=== PATIENT | female | born 2000 | race Caucasian/White ===

== ENCOUNTER 2021-08-22 14:02 | Outpatient (RCR) | payer MEDICAID, SELFPAY ==
--- OUTSIDE RECORDS SUMMARY | 2021-08-10 09:16 | XMS_ITS | Continuity of Care Document ---
:2000 Author Care Team Providers Name Role Phone MD Davey Holley Primary Care Physician KENJI Cramer Attending Physician Chief Complaint and Reason for Visit Chief Complaint Allergic Reaction Reason for Visit [id number] Allergies, Adverse Reactions, Alerts Allergen Type Severity Reaction Last Updated Verified Status Lentil Allergy Unknown Anaphylactic May 08, Yes Activ e Shock 2020 Shellfish Allergy Unknown Anaphylactic May 08, Yes Activ e Allergy Shock 2020 Peanut-contai Allergy Unknown Anaphylactic May 08, Yes A ctive sara Drug Shock 2020 Products Coconut Allergy Severe Anaphylactic October No Active Shock 2017 Clark Beans Allergy Severe Anaphylactic October No Active Shock 2017 Peas Allergy Unknown Anaphylactic October No Active Shock 2017 Tree Nut Allergy Severe Anaphylactic October No Active Shock 2017 Social History Smoking Status Status Start Date End Date Date of Observat ion Never smoked tobacco May 08, 2020 11:00am (finding) Additional Data Assigned Sex Female Problems Active Problems Medical Problem Onset Date Status Asthma 2002 Active Eosinophilic esophagitis 2005 Active GERD (gastroesophageal reflux 2005 Active disease) Severe food allergies Active Wasp allergy 2014 Active Acne Active Allergic rhinitis Active History of tonsillectomy 2006 Resolved Medications Medication Status Dose Units Route Directions Qty Days Start End Ins tructions Date Date Albuterol Active 2 PUFF INH 1 Sulfate (Proair Hfa) 90 Mcg/Puff INH Biotin Active 800 MCG PO Daily Ethinyl Active 1 TAB PO Daily 84 Estradiol/Nor gestimate (Sprintec 28) 0.25 Mg/0.035 Mg TAB Fluticasone Active 2 PUFF PO Twice A Day 1 Propionate Hfa (Flovent Hfa) 220 Mcg/Act AER Magnesium Active 200 MG PO Daily Multiple Active 1 TAB PO Daily Vitamin (Multivitamin ) 1 Tab TAB Naltrexone Active 4.5 MG PO Daily Probiotic Active 1 CAP PO Daily Product (Probiotic) CAP Spironolacton Active 100 MG PO Daily 30 e Zinc Sulfate Active 220 MG PO Daily 100 (Zinc Sulfate (50 Mg Elemental)) 220 Mg CAP Albuterol Disconti 2.5 MG NEB Every 4 30 Decembapril Sulfate nued Hours as r , (Albuterol needed 2017 2020 Neb) 11:12pm 10:54a 2.5MG/3ML NEB m Azelaic Acid Disconti 2 GIULIA EXT Daily 16 May (Azelex) 20 % nued 2020 10:54a m Control Disconti Unknapril nued n Dose 2020 10:54a m Covid-19 Disconti 30 MCG IM Once May (Sars-Cov-2) nued , , Mrna Vir 2021 2021 (Pfizer-Biont 9:39am 9:41am ech Covid-19) 30 Mcg/0.3 Ml INJ Covid-19 Disconti 30 MCG IM Once November (Sars-Cov-2) nued , r , Mrna Vir 2020 2020 (Pfizer-Biont 2:08pm 2:10pm ech Covid-19) 30 Mcg/0.3 Ml INJ Minocycline Disconti 50 MG PO Twice A Day April Hcl nued 2020 10:54a m Prednisone Disconti 40 MG PO Daily 10 Decemb nued r , er 2017 08, 11:12pm 2018 1:36pm Spironolacton Disconti 25 MG PO Four Times 60 Evangelist h e nued Daily 2020 10:54a m Immunizations Immunization Event Date Not Given Dose Television Installer Helper Lot Vac cine Reason Number Number Informatio n Statement (VIS) Deta il COVID-19 Pfizer May 13, PFIZER-BIONTECH [id number] 2020 COVID-19 Pfizer June 03, 2 PFIZER-BIONTECH [id number] 2020 COVID-19 Pfizer November 19 PFIZER-BIO [id number] 2020 COVID-19 Pfizer June 12, PFIZER-BIO [id number] 2021 Advance Directives Advance Directive Response Recorded Date/Time Has patient completed a No May 08, 2020 10:42am Health Care Directive? Insurance Providers Guarantor Liliane Gonzalez N Address [address] [place] [address] Contact Info. Home Phone: Payer Policy Id Coverage Id Subscriber's Subscriber Effective Expi ration Name Id Date Date Out Of [id number] Liliane Gonzalez [id number] January y , [facility] N 2019 Medicaid Encounters Encounter Location(s) Arrival/Admit Date Discharge/Depart Date Provider(s) Registered [place] July 20, 2021 Mikayla Cramer [facility] 7:10am A DENTAL AIDE Plan of Treatment Future Tests Future scheduled test information is unavailable Pending Tests Pending diagnostic test information is unavailable Future Visits Future appointment information is unavailable Referrals to Other Providers Reason for Referral Start Provider Provider Contact Provider Address Referral Date Information Gillian Holley Work Phone: [facility] E MD [address] [facility] [address] [phone] SEEN, ELSEWHERE Future Procedures Future procedure information is unavailable Future Medications Future medication information is unavailable Patient Instructions See Additional Instructions Anaphylaxis (ED)
[2021-08-22 14:07] VITALS: BP 102/64; PULSE 66; RESP 16; TEMP 36.3; O2SAT 100
[2021-08-22] MEDS: OMALIZUMAB 150 MG/ML SYRINGE 300 MG SUBCUT (14:17)
--- NOTE | 2021-09-14 10:52 | AT.DPN ---
Authorization: User: Ashley Vu Nora Date: 04/25/21 08:36 Type: Eligibility Determination Note... Request received from [facility] for continued authorization of Xolair [id number]. Patient carries [employer] as primary insurance. Per Scott at [employer] no prior authorization is required for Xolair. Call Ref #[id number]
== END 2021-09-16 23:59 | disposition home or self-care (01) ==
LOC: CCIC 14:02
PROVIDERS: PCP Internal Medicine; Visit Provider Internal Medicine Hematology & Oncology
DX: J45.909 Unspecified asthma, uncomplicated (principal)
CPT/HCPCS: 96372; 96374; 99212; J2357

== ENCOUNTER 2022-02-21 08:00 | Outpatient (RCR) | payer MEDICAID, BC, SELFPAY ==
[2021-09-21 10:18] VITALS: BP 103/61; PULSE 100; RESP 16; TEMP 37.1; O2SAT 100
[2021-09-21] MEDS: OMALIZUMAB 150 MG PT OWN 300 MG SUBCUT (10:30)
[2021-10-29 12:34] VITALS: BP 104/73; PULSE 77; RESP 16; TEMP 36.3; O2SAT 98
[2021-10-29] MEDS: OMALIZUMAB 150 MG/ML SYRINGE 300 MG SUBCUT (12:38)
[2021-11-27 11:00] VITALS: BP 119/74; PULSE 83; RESP 16; TEMP 36.8; O2SAT 100
[2021-11-27] MEDS: OMALIZUMAB 150 MG/ML SYRINGE 300 MG SUBCUT (11:47)
--- NOTE | 2022-02-01 08:52 | ONC.NURNOTE ---
Addendum entered by Karolina Jaramillo RN 02/07/22 12:26: Authorization: Received message from [facility] that: Magali has been approved for her Xolair injections from 01/04/22-01/03/23!? Just got the fax from [facility] Addendum entered by Karolina Jaramillo RN 02/05/22 08:51: Called and left message with clinic to determine if Dr. Holley is willing to write new orders with these diagnosis codes. She is out of the office this week, but clinic will reach out to covering provider. Original Note: Patient's long standing orders for xolair have been denied by insurance. [facility] and primary care clinic have been working on getting a peer to peer for authorization since 01/04/2022. UR thought using diagnosis that was used on last order might help with the issue. Dr. Holley's office notified to try a new order with dx of Z91.018 or J45.909. LM with [facility] to try this.
--- NOTE | 2022-02-13 11:32 | URNOTE ---
Per correspondence from [facility] of [place], Xolair has been [id number]/18/2022-01/03/2023. Apeal ID #[id number]
[2022-02-21 14:36] VITALS: BP 111/70; PULSE 76; RESP 16; TEMP 35.9; O2SAT 99
[2022-02-21] MEDS: OMALIZUMAB 150 MG/ML SYRINGE 300 MG SUBCUT (15:05)
== END 2022-03-20 23:59 | disposition home or self-care (01) ==
LOC: CCIC 08:00
PROVIDERS: PCP Internal Medicine; Referring Provider Internal Medicine; Visit Provider Internal Medicine Hematology & Oncology
DX: J45.909 Unspecified asthma, uncomplicated (principal)
CPT/HCPCS: 96372; J2357

== ENCOUNTER 2022-09-20 10:00 | Outpatient (RCR) | payer BC, SELFPAY ==
--- NOTE | 2022-03-21 08:49 | ONC.NURNOTE ---
Pt rescheduled xolair appt due to feeling sick.
[2022-03-29 14:05] VITALS: BP 100/66; PULSE 73; RESP 16; TEMP 36.4; O2SAT 100
[2022-03-29] MEDS: OMALIZUMAB 150 MG/ML SYRINGE 300 MG SUBCUT (14:30)
[2022-04-30 14:30] VITALS: BP 110/69; PULSE 75; RESP 16; TEMP 36.1; O2SAT 100
[2022-04-30] MEDS: OMALIZUMAB 150 MG/ML SYRINGE 300 MG SUBCUT (14:30)
[2022-05-31 13:10] VITALS: BP 96/60; PULSE 62; RESP 16; TEMP 36.8; O2SAT 100
[2022-05-31] MEDS: OMALIZUMAB 150 MG/ML SYRINGE 300 MG SUBCUT (13:18)
[2022-06-28 10:10] VITALS: BP 101/62; PULSE 68; RESP 16; TEMP 37.3; O2SAT 94
[2022-06-28] MEDS: OMALIZUMAB 150 MG/ML SYRINGE 300 MG SUBCUT (10:10)
--- NOTE | 2022-07-26 11:36 | PC.NURSE ---
Pt called today to cancel her Xolair appointment today due to new insurance (new job) and needing prior auth first. Pt is now employed by [employer] and has [employer] BC/BS insurance. ID: [id number] Group: [id number] Will start new PA process through UR [facility]
--- NOTE | 2022-08-09 13:51 | URNOTE ---
Received request for [employer] ([id number]). This has been approved 07/29/2022-02/16/2023.REf #[id number]
[2022-08-19 08:10] VITALS: BP 96/64; PULSE 74; RESP 16; TEMP 36.8; O2SAT 100
[2022-08-19] MEDS: OMALIZUMAB 150 MG/ML SYRINGE 300 MG SUBCUT (08:15)
[2022-09-20 10:04] VITALS: BP 107/65; PULSE 79; RESP 18; TEMP 36.6; O2SAT 99
[2022-09-20] MEDS: OMALIZUMAB 150 MG/ML SYRINGE 300 MG SUBCUT (10:06)
== END 2022-09-25 23:59 | disposition home or self-care (01) ==
LOC: CCIC 10:00
PROVIDERS: PCP Internal Medicine; Referring Provider Internal Medicine; Visit Provider Internal Medicine Hematology & Oncology
DX: J45.909 Unspecified asthma, uncomplicated (principal)
CPT/HCPCS: 96372; J2357

== ENCOUNTER 2023-06-03 10:39 | Outpatient (CLI) | payer BC, SELFPAY ==
--- OUTSIDE RECORDS SUMMARY | 2023-06-03 08:37 | XMS_ITS | Clinical Summary ---
Author Name Unknown Organization [facility] Address [address] [place] [address] Care Team Providers Care Revenue Field Agent Name Role Phone Unavailable Primary Care Provider Unavailabl e Source Comments Patient records contain information from all sites at [facility]. For routine questions regarding patient records, call [phone] during business hours, M-F 8:00 AM - 5:00 PM Central Time. Record requests for emergency care only can be directed to [phone] at any time.[facility] Allergies Active Allergy Reactions Criticality Noted Date Comments Zapata Anaphylaxis High 12/28/2018 Clark Beans Clark Beans Coconut Anaphylaxis High 12/28/2018 Pantoprazole Rash 11/11/2017 Triggers severe cystic acne as did omeprazole Triggers severe cystic acne Peanut Anaphylaxis High 04/06/2014 Peanuts and tree nuts (Abstracted records from [facility] Everywhere) peanuts peanuts Peanuts and tree nuts (Abstracted records from [facility] Everywhere) peanuts peanuts Shellfish Containing Products Anaphylaxis High 12/24/2018 (Abstracted records from [facility] Everywhere) (Abstracted records from [facility] Everywhere) (Abstracted records from [facility] Everywhere) Wasp Venom Anaphylaxis High 10/01/2017 (Abstracted records from [facility] Everywhere) (Abstracted records from [facility] Everywhere) Medications Medication Sig Dispensed Refills Start Date End Date Status Estarylla 0.25-35 mg-mcg per tablet Take 1 tablet by mouth daily. 03/27/2022 Active BIOTIN ORAL Take by mouth daily. Act dyan MULTIVITAMIN ORAL Take by mouth daily. Active Lactobacillus acidophilus (PROBIOTIC ORAL) Take by mouth daily. Active albuterol 2.5 mg /3 mL nebulizer solution Inhale 2.5 mg as needed. 04/28/2020 Active albuterol 90 mcg/actuation inhaler Inhale 2 puffs as needed. 12/06/2014 Active azelaic acid (Azelex) 20 % cream Apply 1 application topically as needed. 11/27/2018 Active cetirizine (ZyrTEC) 10 mg tablet Take 10 mg by mouth as needed. 03/21/2021 Active cholecalciferol, vitamin D3, (Vitamin D3) 10 mcg (400 unit) capsule Take by mouth daily. Acti ve docosahexaenoic acid-epa 120-180 mg capsule Take 5 mL by mouth daily. Active EPINEPHrine 0.3 mg/0.3 mL injection syringe Inject 0.3 mg intramuscularly as needed. 09/08/2015 Active famotidine (PEPCID) 20 mg tablet Take 20 mg by mouth as needed. 05/03/2022 Active fluticasone propionate (FLOVENT HFA) 220 mcg/actuation inhaler as needed. 10/16/2017 Active glutamine 500 mg capsule Take by mouth daily. Acti ve ipratropium-albute roL (DUONEB) 0.5-2.5 mg/3 mL nebulizer solution Inhale 3 mL as needed. 12/16/2013 Active magnesium sulfate 100 mg capsule Take by mouth daily. Active omalizumab (XOLAIR) 150 mg/mL injection Inject 300 mg under the skin every 30 (thirty) days. 02/19/2021 Active VITAMIN B COMPLEX ORAL Take by mouth daily. Acti ve zinc sulfate (ZINCATE) 220 (50 mg zinc) capsule daily. 08/22/2021 Active Social History Tobacco Use Types Packs/Day Years Used Date Smoking Tobacco: Never Smokeless Tobacco: Never Tobacco Cessation:Counseling Given: Not Answered Nutrition Answer Date Recorded Nutrition: EVOO Fat Source Unknown 05/10 Nutrition: Servings of Fruits/Vegetables per Day Not on file 05/10/2022 Dental Answer Date Recorded Dental: Regular Dentist Unknown 05/11/19 23 Sex and Gender Information Value Date Recorded Sex Assigned at Not on file Gender Identity Not on file Sexual Orientation Not on file Last Filed Vital Signs Vital Sign Reading Time Taken Comments Blood Pressure - - Pulse - - Temperature - - Respiratory Rate - - Oxygen Saturation - - Inhaled Oxygen Concentration - - Weight 55.8 kg (123 lb) 06/03/2022 11:28 AM CDT Height 160 cm (5' 3) 06/03/2022 11:28 AM CDT Body Mass Index 21.79 06/03/2022 11:28 AM CDT Plan of Treatment Health Maintenance Due Date Last Done Comments Cervical Cancer Screening 1999 Chlamydia and Gonorrhea Screening 1999 HIV Screening 1999 Hepatitis C Screening 1999 Pneumococcal vaccine (0-64 y ears) (1 of 2 - PPSV23 or PCV20) 07/07/2000 05/12/2000, 01/14/2000 DTaP,Tdap,and Td Vaccines (7 - Td or Tdap) 02/27/2022 02/28/2012, 12/10/2004, 12/10/2004, Additional history exists COVID-19 Vaccine (6 - 2022-2 4 season) 2022 10/27/2021, 06/12/2021, 11/17/2020, Additional history exists Influenza Vaccine (#1) 2022 9, 12/23/2008, 10/25/2008, Additional history exists Depression Screening (Annual PHQ-2) 02/17/2023 Hepatitis B Vaccines Completed 05/12/2000, 1999, 1999 HPV Vaccines Completed 09/20/2022, 0503/2022, 03/29/[address] [place] [id number]
--- OUTSIDE RECORDS SUMMARY | 2023-06-03 08:37 | XMS_ITS | Clinical Summary ---
Author Name Unknown Organization [facility] Address [place], [place] [address] Care Team Providers Care Delivery Manager Name Role Phone Gillian Holley MD Primary Care Provider [phone] Allergies Active Allergy Reactions Criticality Noted Date Comments Zapata Anaphylaxis High 12/28/2018 Clark Beans Coconut Anaphylaxis High 12/28/2018 Legumes Anaphylaxis High 12/28/2018 pea Lentils Anaphylaxis High 12/28/2018 Peanut Anaphylaxis High 04/06/2014 Peanuts and tree nuts (Abstracted records [facility] Everywhere) peanuts peanuts Shellfish Containing Products Anaphylaxis High 12/24/2018 (Abstracted records from [facility] Everywhere) Tree Nuts Anaphylaxis High 10/01/2011 Venom-Wasp Anaphylaxis High 10/01/2017 (Abstracted records from [facility] Everywhere) Medications Medication Sig Dispensed Refills Start Date End Date Status omega 0-fpi-rlv-fish oil (FISH OIL) 100-160-1,000 mg cap Take 5 mL by mouth. Active albuterol HFA 90 mcg/actuation inhaler Inhale 2 Puffs by mouth every 4 hours. 09/18/2017 Active PROAIR HFA 90 mcg/actuation inhaler INHALE 2 PUFFS BY MOUTH EVERY 4 HOURS NEEDED (SHORTNESS OF BREATH, WHEEZING) 5 11/27/2018 Active AZELEX 20 % cream APPLY TO AFFECTED AREA TWICE A DAY 4 11/27/2018 Active cetirizine (ZYRTEC) 1 mg/mL solution TAKE 10 ML BY MOUTH ONCE DAILY NEEDED (ALLERGIES) 11 11/27/2018 Active EPINEPHrine (EPIPEN) 0.3 mg/0.3 mL injection INJECT 0.3 ML INTO MUSCLE ONCE NEEDED FOR ANAPHYLAXIS 1 10/06/2018 Active fluticasone propionate (FLOVENT HFA) 220 mcg/Actuation inhaler SPRAY AND SWALLOW 2 PUFFS TWICE DAILY. DO NOT EAT OR DRINK FOR 1 HOUR AFTER DOSES. 10/16/2017 Active albuterol-ipratropiu m (DUONEB) (2.5-0.5 mg) in 3 mL NEBULIZATION solution Inhale 3 mL by mouth. 12/16/2013 Active levonorgestrel-ethin yl estrad, 0.1mg-20mcg, (ALESSE-28) 0.1-20 mg-mcg tablet Take 1 Tab by mouth. 03/26/2017 A ctive magnesium sulfate 100 mg cap Take by mouth. Active omalizumab (XOLAIR) 150 mg injection Inject 300 mg subcutaneous every 4 weeks. 10/13/2017 Active predniSONE (DELTASONE) 20 mg tablet Take 40 mg by mouth once daily. 0 01/21/2018 Active EPINEPHrine (Auvi-Q) 0.3 mg/0.3 mL auto-injectorIndicat ions:Allergic urticaria Inject 0.3 mg intramuscular one time if needed for Allergic Reaction for up to 1 dose. 2 Each 2 03/04/2022 Active BIOTIN SUSPENSION 2.5MG/ML (AHC AMB MIX SF) Take by mouth. Active elderberry fruit 350 mg cap Take by mouth. Active L. ACIDOPHILUS/BIFID. ANIMALIS ORAL 1 Capsule. 01/03/2022 Active MULTIVITAMIN 12 IV 1 Tablet. 08/22/2021 Active cholecalciferol, vitamin D3, (Cholecalciferol, VitD3,, Bulk,) 100,000 unit/gram powd Mix in liquid then take by mouth. Active vitamin B complex (B-COMPLEX VITAMIN) tablet Take by mouth. 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 Family hx: acne. 07/27/15 phone acne flaring x 3mo, add trial doxy 100bid; 05/30/14 phonecall,samples Aczone 5%gel to trial MUCH better, improved dramatically; 05/18/2014 Dermatology eval, new onset Inflamm acne vulgaris, face/upperback/chest, Acne scarring, Postinflammatory Hyperpigmentation, in Atopic pt (per hx,fam hx), hx migraines, RXd trial BP 5%gel, clindamycin 1%gel, Differin/adapalene 0.1%cream. Family hx: acne. 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 28 kU RAST 10/20: Class 3 (17.0 kU) RAST 09/25: Class 4 (38.0 kU) RAST 16. 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 Eosinophilic esophagitis 12/16/2005 Family History Medical History Relation Name Comments Crohn's disease Maternal Grandfather Lung cancer Maternal Grandmother Relation Name Status Comments Maternal Grandfather Maternal Grandmother Social History Tobacco Use Types Packs/Day Years Used Date Smoking Tobacco: Never Smokeless Tobacco: Never Tobacco Cessation:Counseling Given: Yes Alcohol Use Standard Drinks/Week Comments Not Currently 0 (1 standard drink = 0.6 oz pur e alcohol) PHQ-2 Answer Date Recorded PHQ-2 Score 0 12/28/2018 Social Connections Answer Date Recorded Frequency of Communication with Friends and Fami ly Not on file 03/04/2022 Sex and Gender Information Value Date Recorded Sex Assigned at Not on file Gender Identity Not on file Sexual Orientation Not on file Obstetrics History Para Term AB IAB SAB Ectopic Multiple Livin g Live Births 0 0 0 0 0 0 0 0 0 0 0 Last Filed Vital Signs Vital Sign Reading Time Taken Comments Blood Pressure 104/60 05/03/2022 2:44 PM CDT Pulse 63 05/03/2022 2:44 PM CDT Temperature 36.8 ??C (98.3 ??F) 03/04/2022 9:14 AM CS T Respiratory Rate - - Oxygen Saturation 100% 05/03/2022 2:44 PM CDT Inhaled Oxygen Concentration - - Weight 54.9 kg (121 lb) 05/03/2022 2:44 PM CDT Height 160 cm (5' 3) 03/04/2022 9:14 AM BUDGET AND POLICY ANALYST Body Mass Index 21.43 03/04/2022 9:14 AM BUDGET AND POLICY ANALYST Plan of Treatment Health Maintenance Due Date Last Done Comments Tdap 2010 HIV for age 15-65 2014 HPV series for age 9-26 (1 - 3-dose series) 2014 Chlamydia for age 16-24 2015 Hepatitis C screening for age 18-79 2017 Tetanus booster 2019 Depression screening for age 12+ 12/29/2019 12/28/2018 Pap test for age 21-65 01/17/2020 COVID-19 vaccine series ( season) 2022 10/27/2021, 06/12/2021, 11/17/2020, Additional history exists BMI (ht and wt on same day) for age 18+ 03/04/2023 03/04/2022, 12/28/2018 Influenza for age 9-49 10/19/2023 Pneumococcal series for age 6-64 Aged Out No longer eligible based on patient's age to complete this topic Care Teams Delivery Manager Relationship Specialty Start Date End Date Gillian Holley MD [address] [place] [address] PCP - General Internal Medicine 12/29/18
--- OUTSIDE RECORDS SUMMARY | 2023-06-03 08:37 | XMS_ITS ---
Author Name Unknown Organization [facility] Address [address] [place] [address] Care Team Providers Care Corrosion Technician Name Role Phone Unavailable Unavailable Unavailable Surgery Details Not on file Complications Check Surgery Details section. Procedure Estimated Blood Loss Check Surgery Details section. Procedure Findings Check Surgery Details section. Procedure Specimens Taken Check Surgery Details section.
--- OUTSIDE RECORDS SUMMARY | 2023-06-03 08:37 | XMS_ITS | Clinical Summary ---
Author Name Unknown Organization [place] Address [facility] [place] [address] Care Team Providers Care Group Manager Name Role Phone No Ref-Primary, Physician Primary Care Provider Allergies Active Allergy Reactions Criticality Noted Date Comments Shellfish Allergy Anaphylaxis High 12/24/2018 (Abstracted records from [facility] Everywhere) (Abstracted records from [facility]where) (Abstracted records from [facility] Everywhere) Medications Medication Sig Dispensed Refills Start Date End Date Status omalizumab (XOLAIR) 150 MG/ML SOSY injection Inject 300 mg Subcutaneous every 28 days 02/19/2021 Active IHSAN 0.25-35 MG-MCG tablet Take 1 tablet by mouth daily Active Social History Tobacco Use Types Packs/Day Years Used Date Smoking Tobacco: Never Smokeless Tobacco: Never Adolescent Education Answer Date Record ed Getting School Help Needed Not on file 11/09 Sex and Gender Information Value Date Recorded Sex Assigned at Not on file Gender Identity Not on file Sexual Orientation Not on file Last Filed Vital Signs Vital Sign Reading Time Taken Comments Blood Pressure 114/82 01/24/2023 12:31 PM DRYING ROOM SUPERVISOR Pulse 86 01/24/2023 12:31 PM DRYING ROOM SUPERVISOR Temperature 37 ??C (98.6 ??F) 01/24/2023 12:31 PM DRYING ROOM SUPERVISOR Respiratory Rate - - Oxygen Saturation 97% 01/24/2023 12:31 PM DRYING ROOM SUPERVISOR Inhaled Oxygen Concentration - - Weight 54 kg (119 lb) 01/24/2023 12:31 PM DRYING ROOM SUPERVISOR Height - - Body Mass Index - - Plan of Treatment Health Maintenance Due Date Last Done Comments ADVANCE CARE PLANNING 1999 ANNUAL REVIEW OF HM ORDERS 1999 CHLAMYDIA SCREENING 1999 HIV SCREENING 2014 HEPATITIS C SCREENING 2017 PAP 01/17/2020 DTAP/TDAP/TD IMMUNIZATION (7 - Td or Tdap) 02/27/2022 02/28/2012, 12/10/2004, 03/15/2002, Additional history exists YEARLY PREVENTIVE VISIT 03/21/2022 03/21/2021 COVID-19 Vaccine ( season) 2022 10/27/2021, 06/12/2021, 11/17/2020, Additional history exists INFLUENZA VACCINE (#1) 2022 9, 12/23/2008, 10/25/2008, Additional history exists PHQ-2 (once per calendar year) 2023 HEPATITIS B IMMUNIZATION Completed 001, 1999, 1999 Pneumococcal Vaccine: Pediatrics (0 to 5 Years) and At-Risk Patients (6 to 64 Years) Completed 05/12/2000, 01/14/2000 IPV IMMUNIZATION Completed 12/10/2004, , 05/12/2000, Additional history exists MENINGITIS IMMUNIZATION Aged Out 11/16/2013, 11/16 No longer eligible based on patient's age to complete this topic HPV IMMUNIZATION Completed 09/20/2022, 03/2022, 03/29/2022 RSV MONOCLONAL ANTIBODY Aged Out No l onger eligible based on patient's age to complete this topic Care Teams Group Manager Relationship Specialty Start Date End Date No Ref-Primary, Physician PCP - General 01/24/23
--- OUTSIDE RECORDS SUMMARY | 2023-06-03 08:37 | XMS_ITS | Referral Summary ---
Author Name Unknown Organization [place] Address [facility] [place] [address] Care Team Providers Care Channel Development Director Name Role Phone No Ref-Primary, Physician Primary Care Provider Allergies Active Allergy Reactions Criticality Noted Date Comments Shellfish Allergy Anaphylaxis High 12/24/2018 (Abstracted records from [facility] Everywhere) (Abstracted records from [facility] Everywhere) (Abstracted records from [facility] Everywhere) Medications Medication Sig Dispensed Refills [...] Comments Blood Pressure 114/82 01/24/2023 12:31 PM RESIDENTIAL INTERIOR DESIGNER Pulse 86 01/24/2023 12:31 PM RESIDENTIAL INTERIOR DESIGNER Temperature 37 ??C (98.6 ??F) 01/24/2023 12:31 PM RESIDENTIAL INTERIOR DESIGNER Respiratory Rate - - Oxygen Saturation 97% 01/24/2023 12:31 PM RESIDENTIAL INTERIOR DESIGNER Inhaled Oxygen Concentration - - Weight 54 kg (119 lb) 01/24/2023 12:31 PM RESIDENTIAL INTERIOR DESIGNER Height - - Body Mass Index - - Plan of Treatment Not on file Care Teams Channel Development Director Relationship Specialty Start Date End Date No Ref-Primary, Physician PCP - General 01/24/23
--- OUTSIDE RECORDS SUMMARY | 2023-06-03 08:37 | XMS_ITS | Referral Summary ---
Author Name Unknown Organization [facility] Address [address] [place] [address] Care Team Providers Care Primer Inserting Machine Adjuster Name Role Phone Unavailable Primary Care Provider Unavailabl e Source Comments Patient records contain information from all sites at [facility]. For routine questions regarding patient records, call [phone] during business hours, M-F 8:00 AM - 5:00 PM Central Time. Record requests for emergency care only can be directed to [phone] at any time.[facility] Allergies Active Allergy Reactions Criticality Noted Date Comments [place] Anaphylaxis High 12/28/2018 Clark Beans Clark Beans [place]ut Anaphylaxis High 12/28/2018 Pantoprazole Rash 11/11/2017 Triggers severe cystic acne as did omeprazole Triggers severe cystic acne Peanut Anaphylaxis High 04/06/2014 Peanuts and tree nuts (Abstracted records from [facility] Care Everywhere) peanuts peanuts Peanuts and tree nuts (Abstracted records from [facility] Care Everywhere) peanuts peanuts Shellfish Containing Products Anaphylaxis High 12/24/2018 (Abstracted records from [facility] Care Everywhere) (Abstracted records from [facility] Care Everywhere) (Abstracted records from [facility] Care Everywhere) Wasp Venom Anaphylaxis High 10/01/2017 (Abstracted records from [facility] Care Everywhere) (Abstracted records from [facility] Care Everywhere) Medications Medication Sig Dispensed Refills [...] 06/03/2022 11:28 AM CDT Plan of Treatment Not on file
== END 2023-06-03 10:40 | disposition home or self-care (01) ==
PROVIDERS: PCP Internal Medicine; Visit Provider Internal Medicine
DX: Z13.220 Encounter for screening for lipoid disorders (principal); Z13.1 Encounter for screening for diabetes mellitus
CPT/HCPCS: 80061; 82947